=== PATIENT | female | born 1945 | race Two or more races ===

== ENCOUNTER 2023-11-03 09:36 | Outpatient (REF) | payer OTHER, SELFPAY ==
[2023-11-03 14:42] LABS: MANUAL DIFF FLAG NO
[2023-11-03 14:54] LABS: Basophils Percent Auto 0.4 % (0-2); Eosinophils Absolute Auto 0.1 X10*3/uL (0.0-0.4); Eosinophils Percent Auto 1.8 % (0-4); Hematocrit 39.7 % (37.0-47.0); Hemoglobin 12.4 g/dl (12.0-16.0); Lymphocytes Absolute Auto 1.8 X10*3/uL (1.2-4.9); Lymphocytes Percent Auto 37.8 % (20-40); Mean Corpuscular HGB Conc 31.2 g/dl (31.0-35.0); Mean Corpuscular Hemoglobin 25.2 pg (27.0-33.0); Mean Corpuscular Volume 80.5 fL (80.0-98.0); Monocytes Absolute Auto 0.5 X10*3/uL (0.1-1.2); Monocytes Percent Auto 9.2 % (2-11); Neutrophils Absolute Auto 2.5 x10*3/uL (2.0-8.3); Neutrophils Percent Auto 50.8 % (45-73); Platelet Count 205 X10*3/uL (160-400); Red Blood Count 4.93 X10*6/uL (4.20-5.50); Red Cell Distribution Width 18.6 % (11.0-16.0); White Blood Count 4.9 X10*3/uL (4.8-10.8)
[2023-11-03 15:30] LABS: Alanine Aminotransferase 39 U/L (0-31); Albumin Level 4.1 g/dL (3.5-5.0); Alkaline Phosphatase 74 U/L (39-117); Anion Gap 13 (12-20); Aspartate Amino Transferase 32 U/L (5-31); Bilirubin Total 0.2 mg/dL (0.0-1.0); Blood Urea Nitrogen 18 mg/dL (9-16); Calcium 9.6 mg/dL (8.4-10.2); Carbon Dioxide 23 mmol/L (22-29); Chloride 106 mmol/L (96-108); Cholesterol 138 mg/dL (<200); Estimated Glomerular Filt Rate > 60; Glucose Random 209 mg/dL (60-115); HDL Cholesterol 37 mg/dL (>40); LDL Cholesterol Calculated 59 mg/dL (<100); Potassium 3.8 mmol/L (3.3-5.1); Sodium 138 mmol/L (135-145); Total Protein 7.5 g/dL (6.5-8.0); Triglycerides 214 mg/dL (<150)
[2023-11-03 15:37] LABS: TSH reflex Free T4 1.32 uIU/mL (0.32-4.0)
[2023-11-05 22:09] LABS: TS Negative Control Passed; TS Panel A 0; TS Panel B 0; TS Positive Control Passed; TSpotTB Negative (Negative)
== END 2023-11-03 09:37 | disposition home or self-care (01) ==
LOC: HO.CHCLDS 09:36
PROVIDERS: Visit Provider Internal Medicine
DX: E11.65 Type 2 diabetes mellitus with hyperglycemia (principal); Z11.1 Encounter for screening for respiratory tuberculosis
CPT/HCPCS: 36415; 80053; 80061; 84443; 85025; 86481

== ENCOUNTER 2024-05-17 13:33 | Outpatient (RCR) | payer OTHER, SELFPAY ==
[2024-05-17 13:55] VITALS: BP 111/58; PULSE 75
== END 2024-06-16 11:41 | disposition home or self-care (01) ==
LOC: HO.PT 13:33
PROVIDERS: PCP Internal Medicine; Visit Provider Internal Medicine
DX: R26.89 Other abnormalities of gait and mobility (principal); Z91.81 History of falling
CPT/HCPCS: 97110; 97162

== ENCOUNTER 2024-06-29 09:27 | Outpatient (REF) | payer OTHER, SELFPAY ==
[2024-06-29 14:39] LABS: Alanine Aminotransferase 19 U/L (0-31); Albumin Level 4.1 g/dL (3.5-5.0); Alkaline Phosphatase 63 U/L (39-117); Anion Gap 14 (12-20); Aspartate Amino Transferase 19 U/L (5-31); Bilirubin Total 0.2 mg/dL (0.0-1.0); Blood Urea Nitrogen 13 mg/dL (9-16); Calcium 9.8 mg/dL (8.4-10.2); Carbon Dioxide 26 mmol/L (22-29); Chloride 104 mmol/L (96-108); Estimated Glomerular Filt Rate > 60; Glucose Random 172 mg/dL (60-115); Potassium 3.9 mmol/L (3.3-5.1); Sodium 140 mmol/L (135-145); Total Protein 7.6 g/dL (6.5-8.0)
[2024-06-30 08:09] LABS: HBS Num1 1.59 mIU/mL (0-7.99); HBc Num1 6.33 S/CO (0.00-0.79); HBsAGNum1 0.43 S/CO (0.00-0.99); Hepatitis A Antibody IgM 0.37 Index (0-0.79); Hepatitis B Surface Antigen Negative (Negative); ~HepC Num1 0.13 S/CO (0.00-0.79); ~Hepatitis A Antibody IgM Nonreactive (Nonreactive); ~Hepatitis B Surface Antibody NONREACTIVE (Nonreactive); ~Hepatitis C Antibody Nonreactive (Nonreactive)
[2024-06-30 08:44] LABS: HBc Num2 6.22 S/CO; HBc Num3 6.57 S/CO; Hepatitis B Core Antibody Reactive (Nonreactive)
[2024-07-01 22:17] LABS: Hepatitis B Core Antibody IgM NON-REACTIVE (NON-REACTIVE)
== END 2024-06-29 09:28 | disposition home or self-care (01) ==
LOC: HO.CHCLDS 09:27
PROVIDERS: Visit Provider Internal Medicine
DX: R74.01 Elevation of levels of liver transaminase levels (principal); E11.9 Type 2 diabetes mellitus without complications; Z79.4 Long term (current) use of insulin; E83.52 Hypercalcemia
CPT/HCPCS: 36415; 80053; 86704; 86705; 86706; 86709; 86803; 87340

== ENCOUNTER 2025-02-16 10:00 | Outpatient (RCR) | payer OTHER, SELFPAY | END 2025-03-28 08:18 | disposition home or self-care (01) | LOC: HO.PT 10:00 | PROVIDERS: PCP Internal Medicine; Visit Provider Internal Medicine | DX: R26.89 Other abnormalities of gait and mobility (principal); R26.9 Unspecified abnormalities of gait and mobility | CPT/HCPCS: 97110; 97112; 97162 ==